=== PATIENT | male | born 1960 | race Caucasian/White ===

== ENCOUNTER → 2017-05-22 | Outpatient (CLI) | payer OTHER ==
[~2017-05-22] MED LIST: ENAL1TAB33 PO; GLIM2TAB2 PO; LEVO50TA6 PO; METF1000 PO; MULTTAB58 PO; OXYC-57 PO; TAMS0.4C59 PO
--- NOTE | 2017-05-22 10:07 | DIAGNOSTIC IMAGING REPORT ---
[facility] CLINICAL HISTORY: Nephrolithiasis. COMPARISON STUDY: [facility] April 01, [address] of the abdomen and pelvis November 19, 2013. FINDINGS: Pelvic calcifications were shown to represent phleboliths on CT of November 19, 2013. No urinary calculi are identified on this study. Bowel gas pattern is normal. IMPRESSION: No urinary calculi identified. Electronically signed by: Donaldo Grant M.D. 05/22/2017 10:05 AM Dictated Date/Time: 05/22/2017 10:04 AM
== END | disposition home or self-care (01) ==
LOC: C.RAD 09:21
PROVIDERS: ATTEND Urology
DX: N20.0 Calculus of kidney (principal)